=== PATIENT | female | born 1970 | race Caucasian/White ===

== ENCOUNTER 2019-11-05 11:28 | Outpatient (CLI) | payer SELFPAY ==
--- NOTE | 2019-11-05 11:35 | XRR_ITS ---
PROCEDURE INFORMATION: Exam: XR Abdomen, 1 View Exam date and time: 11/05/2019 11:49 AM Age: 49 years old Clinical indication: Abdominal pain; Prior surgery; Surgery type: Hystero; Additional info: Pain, HX of kidney stones TECHNIQUE: Imaging protocol: XR of the abdomen. Views: Frontal supine view of the abdomen. 1 View. COMPARISON: CR XR KUB [id number] 04/07/2014 3:26 PM FINDINGS: Gastrointestinal tract: Normal. No bowel dilation. Bones/joints: No acute findings. XR/XR KUB [id number] IMPRESSION: No acute findings.
== END 2019-11-05 11:29 | disposition home or self-care (01) ==
LOC: RAD 11:31
PROVIDERS: Visit Provider Urology
DX: R10.9 Unspecified abdominal pain (principal); Z87.442 Personal history of urinary calculi
CPT/HCPCS: 74018; 81000

== ENCOUNTER 2022-05-02 10:46 | Emergency (ER) | payer MEDICAID, SELFPAY ==
[2022-05-02 11:15] VITALS: BP 127/79; PULSE 75; TEMP 36.9; O2SAT 92; BMI 26.6
--- NOTE | 2022-05-02 12:58 | XR_ITS ---
WS: [id number] Chest 2 views, 05/02/2022 Clinical Data: cough, SOB Comparison: Two-view chest, 03/07/2018. Findings: No nodules, masses or effusions are seen. The heart is normal. The pulmonary vascularity is not increased. No pneumothorax is seen. There is a small patchy opacity over the lateral aspect of l eft diaphragm which could represent atelectasis and/or pneumonia. XR/XR chest 2V* [id number] Impression: Minimal patchy left lower lobe opacity which could represent atelectasis and/or pneumonia.
--- NOTE | 2022-05-02 13:00 | W.ED.URI ---
HPI - URI/Sore Throat General: Chief Complaint: Upper Respiratory Infection Stated Complaint: Lungs hurting, Lower back Time Seen by Provider: 05/02/22 12:00 History of Present Illness: Patient reports that she has had a cough for over a week now. She reports that her sputum has changed from clear to green. She reports that she is having some left mid back pain. She does offer that she has a history of kidney stones. She is not having any blood in her urine, painful urination, burning, urgency. She denies fever. She has been having some shortness of breath with a continuous cough. She does have a prescription for albuterol/ProAir at home that she has been using to help. She is concerned about pneumonia because she has had this several times in the past. Associated symptoms: Reports nasal congestion; Deny abdominal pain, chills, chest pain, fever(s), nausea or vomiting Review of Systems Const: Denies: fever(s) or chills ENMT: Reports: nasal congestion and post nasal drip Card: Denies: chest pain or palpitations Resp: Reports: dyspnea, productive cough, wheezing and change in phlegm color GI: Denies: abdominal pain, nausea or vomiting : Reports: flank pain; Denies: difficulty voiding, dysuria, urinary frequency, urinary urgency, urinary hesitancy or hematuria PFSH ED PFSH: Social History Smoking and tobacco status: current every day smoker Alcohol intake: never Physical Exam Const: COMMON NORMALS: no acute distress, patient oriented x3 and alert HENMT: COMMON NORMALS: TM's normal bilaterally TYMPANIC MEMBRANE: TM's normal bilaterally THROAT: posterior oropharynx normal, uvula midline and postnasal drainage Neck/C-Spine: COMMON NORMALS: no JVD Resp: EFFORT & INSPECTION: Yes able to speak in complete sentences AUSCULTATION: crackles Laterality: left and posterior Cardio: COMMON NORMALS: no JVD, regular rate, regular rhythm, S1 normal heart sound present and S2 normal heart sound present RATE: regular rate RHYTHM: regular rhythm HEART SOUNDS: S1 normal heart sound present and S2 normal heart sound present : COMMON NORMALS: Yes no CVA tenderness BLADDER/KIDNEY EXAM: Yes no CVA tenderness Back/Pelvis: COMMON NORMALS: no CVA tenderness Neuro: COMMON NORMALS: patient oriented x3 SENSORIUM/ORIENTATION: Yes alert Course Vital Signs: Vital signs: Vital Signs Temperature 98.5 F 05/02/22 11:15 Pulse Rate 75 05/02/22 11:15 Blood Pressure 127/79 05/02/22 11:15 Pulse Oximetry 92 05/02/22 11:15 Oxygen Delivery Me thod 05/02/22 11:15 MDM - URI/Sore Throat Medical Decision Making Consider UTI, renal stone, pneumonia, upper respiratory infection, muscle spasm UA dip?negative X-ray chest?2 view wet read shows left lower lobe opacity/pneumonia. Radiology review?minimal patchy left lower lobe opacity which could represent atelectasis and/or pneumonia. We will treat patient to cover community-acquired pneumonia. She has taken doxycycline in the past. Provide her with doxycycline and prednisone. Continue using ProAir at home as previously prescribed. Follow-up with primary care provider as needed. Return to the ER for new or worsening symptoms Lab Data Radiology Impressions Chest X-Ray 05/02/22 12:58 Impression: Minimal patchy left lower lobe opacity which could represent atelectasis and/or pneumonia. Laboratory Results Urine Color Yellow (Yellow) 05/02/22 13:14 Urine Appearance Clear (CLEAR) 05/02/22 13:14 Urine pH 6.5 (5-7) 05/02/22 13:14 Ur Specific [place] 1.015 (1.005-1.030) 05/02/22 13:14 Urine Protein Neg (Negative) 05/02/22 13:14 Urine Glucose (UA) Norm (Normal) 05/02/22 13:14 Urine Ketones Negative (Negative) 05/02/22 13:14 Urine Blood Neg (Negative) 05/02/22 13:14 Urine Nitrate Negative (Negative) 05/02/22 13:14 Urine Bilirubin Neg (Negative) 05/02/22 13:14 Urine Urobilinogen Norm mg/dL (Negative) 05/02/22 13:14 Ur Leukocyte Esterase Negative (Negative) 05/02/22 13:14 Discharge Plan Discharge Patient Disposition: Home Clinical Impression: Pneumonia of left lower lobe due to infectious organism Condition: Stable Prescriptions: New doxycycline hyclate 100 mg capsule 100 mg PO Q12H 7 Days Qty: 14 0RF prednisone 20 mg tablet 40 mg PO DAILY 5 Days Qty: 10 0RF No Action PRO-AIR inhalation doxycycline hyclate 100 mg capsule 100 mg PO BID 7 Days Qty: 14 0RF albuterol sulfate [ProAir HFA] 90 mcg/actuation HFA aerosol inhaler 2 puff inhalation Q6H PRN (Reason: shortness of breath or wheezing) Qty: 8.5 0RF Discharge Orders: Discharge ED (Routine); Ordered 05/02/22 Ordered By: Crystal Klein Discharge Diet: Usual diet Discharge Activity: Resume usual activity Patient Instructions: Pneumonia (ED) Activity Restrictions/Additional Instructions: Take antibiotics as directed. Take steroids as directed. Use your ProAir inhaler and albuterol nebulizer you have at home as needed/previously directed. Make sure that you are staying well-hydrated. Make sure that you are coughing and deep breathing numerous times per hour. Follow-up with your primary care provider as needed. Return to the ER for new or worsening symptoms. 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
[2022-05-02 13:28] LABS: Add Urine Microscopic? NO; Charge for UA Resulting for Rev
[2022-05-02 13:30] LABS: Specific Gravity, Urine 1.015 (1.005-1.030); Urine Appearance Clear (CLEAR); Urine Color Yellow (Yellow); pH Urine 6.5 (5-7)
[2022-05-02 13:31] LABS: Bilirubin Urine Neg (Negative); Blood Urine Neg (Negative); Glucose Urine UA Norm (Normal); Ketones Urine Negative (Negative); Leukocyte Esterase Urine Negative (Negative); Nitrate Urine Negative (Negative); Protein Urine Neg (Negative); Urobilinogen Urine Norm (Negative)
== END 2022-05-02 14:00 | disposition home or self-care (01) ==
PROVIDERS: Emergency Provider Nurse Practitioner Family
DX: J18.8 Other pneumonia, unspecified organism (principal); F17.210 Nicotine dependence, cigarettes, uncomplicated
CPT/HCPCS: 71046; 81003; 99283

== ENCOUNTER 2022-07-17 15:15 | Outpatient (CLI) | payer BC, MEDICAID, SELFPAY ==
--- NOTE | 2022-07-17 16:03 | XR_ITS ---
WS: [email or web address] XR lumbar spine 6V w f/e [id number] REASON FOR EXAM: NECK AND BACK PAIN FINDINGS: Relatively normal lumbar spine curvature is. Intervertebral disc spaces are intact and relatively well-preserved. No spondylolysis. There is 2.5 mm of neutral anterolisthesis of L4 on L5. This listhesis increases to 4 to 5 mm with fl exion and reduces somewhat with extension. Mild degenerative change in the facet joints L4-S1. XR/XR lumbar spine 6V w f/e [id number] IMPRESSION: Degenerative spondylosis as above.
== END 2022-07-17 15:16 | disposition home or self-care (01) ==
PROVIDERS: PCP Family Medicine; Visit Provider Family Medicine
DX: M54.2 Cervicalgia (principal); M47.816 Spondylosis without myelopathy or radiculopathy, lumbar region
CPT/HCPCS: 72114

== ENCOUNTER 2022-08-07 11:38 | Outpatient (CLI) | payer BC, MEDICAID, SELFPAY ==
--- NOTE | 2022-08-07 11:47 | MM_ITS ---
WS: [email or web address] BILATERAL SCREENING DIGITAL TOMOSYNTHESIS MAMMOGRAM WITH CAD HISTORY: SCREENING COMPARISON: 06/20/2012 Bilateral CC and MLO views with tomosynthesis and synthetic mammography submitted. Computer aided det ection analyzed. Breast composition: There are scattered areas of fibroglandular density. No suspicious masses, microc alcifications or architectural distortion. MM/[place] [id number] IMPRESSION: BI-RADS: 1-Negative FOLLOW UP: 1 Year Follow-up
== END 2022-08-07 11:39 | disposition home or self-care (01) ==
LOC: RAD 11:40
PROVIDERS: PCP Family Medicine; Visit Provider Family Medicine
DX: Z12.31 Encounter for screening mammogram for malignant neoplasm of breast (principal)
CPT/HCPCS: 77063; 77067

== ENCOUNTER 2022-09-20 11:33 | Outpatient (CLI) | payer BC, MEDICAID, SELFPAY | END 2022-09-20 11:34 | disposition home or self-care (01) | LOC: LAB 11:34 | PROVIDERS: PCP Family Medicine; Visit Provider Specialist | DX: C44.319 Basal cell carcinoma of skin of other parts of face (principal) | CPT/HCPCS: 88304; 88331 ==

== ENCOUNTER 2022-10-16 10:16 | Outpatient (CLI) | payer BC, MEDICAID, SELFPAY ==
--- NOTE | 2022-10-16 11:00 | MR_ITS ---
WS: [id number] MRI LUMBAR SPINE NONCONTRAST TECHNIQUE: Sagittal T1, T2 and STIR imaging. Axial T1 and T2 imaging. CLINICAL INFORMATION: lower back pain COMPARISON: None. FINDINGS: Mild lumbar curve. No acute compression. Slight anterolisthesis L3 on L4 and L4 on L5. Shallow centra l protrusion cervical spine at C5-C6. Small central protrusions in the mid thoracic spine at T7-T8 an d T8-T9. L1-L2: Normal. L2-L3: Mild annular bulging. Mild facet arthropathy. Spinal canal and foramen are patent. L3-L4: Mild annular bulging. Slight effacement of ventral thecal sac. Tiny annular fissure. Mild face t arthropathy. L4-L5: Slight retrolisthesis. Mild disc bulging with slight impingement traversing L5 nerve roots myesha aterally. Eccentric disc bulging with mild bilateral foraminal narrowing. Tiny annular fissure. Mild facet arthropathy. L5-S1: No significant disc bulging. Mild facet arthropathy. Spinal canal and foramen are patent. Small RIGHT renal cyst. Visualized pelvic bony structures: Normal. Paravertebral soft tissues: Normal. MR/MR lumbar spine wo con* [id number] IMPRESSION: 1. Mild lumbar curve. No acute compression. No high-grade central canal stenos is. 2. Annular bulging L4-L5 with slight contact of the traversing L5 nerve roots bilaterally. Eccentric disc bulging at this level with mild LEFT greater than R IGHT foraminal narrowing and a small annular fissure. 3. Mild annular bulging L3-L4 with a tiny annular fissure. Slight effacement o f the ventral thecal sac. 4. Mild facet arthropathy L4-L5. 5. Shallow central protrusion cervical spine at C5-C6. 6. Small central protrusions in the mid thoracic spine at T7-T8 and T8-T9.
== END 2022-10-16 10:17 | disposition home or self-care (01) ==
LOC: RAD 10:18
PROVIDERS: PCP Family Medicine; Visit Provider Physician Assistant
DX: M43.16 Spondylolisthesis, lumbar region (principal); M47.26 Other spondylosis with radiculopathy, lumbar region
CPT/HCPCS: 72148

== ENCOUNTER 2022-10-23 07:30 | Outpatient (CLI) | payer BC, MEDICAID, SELFPAY ==
--- NOTE | 2022-10-23 07:42 | US_ITS ---
WS: [email or web address] ABDOMINAL ULTRASOUND LIMITED REASON FOR EXAM: RUQ PAIN COMPARISON: None available. ORDER DATE: 10/23/2022 7:51 AM TECHNIQUE: Grayscale and Doppler ultrasound examination of the abdomen. FINDINGS: Pancreas: Unremarkable Abdominal aorta and IVC: Aorta measures 20 mm in diameter. IVC measures approximately 24 mm Liver: Liver measures 16.1 cm in length. Normal echotexture Gallbladder: Gallbladder wall thickness measures 2.5 mm mm. No evidence of cholelithiasis. Common jackie t measures 4 mm. Right kidney: Right kidney measures 9.9 cm x 4.3 cm x 4.9 cm. Right kidney cortex measures 1.3 cm. Th ere is a cyst measuring 17 mm in diameter in the mid kidney Portal vein hepatopedal flow on duplex imaging US/US abdomen limited [id number] IMPRESSION: No acute abnormality.
== END 2022-10-23 07:31 | disposition home or self-care (01) ==
PROVIDERS: PCP Family Medicine; Visit Provider Family Medicine
DX: R10.11 Right upper quadrant pain (principal)
CPT/HCPCS: 76705

== ENCOUNTER 2022-11-06 07:48 | Outpatient (CLI) | payer BC, MEDICAID, SELFPAY ==
--- NOTE | 2022-11-06 08:00 | NM_ITS ---
WS: [email or web address] NUCLEAR MEDICINE HIDA SCAN CLINICAL INFORMATION: RUQ PAIN TECHNIQUE: Following intravenous administration of 7.8 mCi of technetium 99m mebrofenin, images of th e abdomen were obtained over the course of 60 minutes. Next, gallbladder ejection fraction was determ ined by obtaining preprandial and one-hour postprandial images of the gallbladder following oral sourav stion of Ensure. COMPARISON: Ultrasound October 23, 2022 FINDINGS: Normal hepatic uptake at 5 minutes. Hepatomegaly. Normal hepatic excretion. Gallbladder is visualized by 10 minutes. No evidence of acute cholecystitis. Normal common bile duct and small bowel activity. Gallbladder ejection fraction 93% within normal limits. No evidence of chronic cholecystitis. NM/NM hepatobiliary w phar* [id number] IMPRESSION: 1. No evidence of acute or chronic cholecystitis. 2. Gallbladder ejection fraction 93% within normal limits.
== END 2022-11-06 07:49 | disposition home or self-care (01) ==
LOC: RAD 07:48
PROVIDERS: PCP Family Medicine; Visit Provider Family Medicine
DX: R10.11 Right upper quadrant pain (principal)
CPT/HCPCS: 78227; A9537

== ENCOUNTER → 2022-12-12 11:18 | Outpatient (BNVA) | payer BC, MEDICAID, SELFPAY | PROVIDERS: PCP Family Medicine; Visit Provider Internal Medicine Rheumatology | DX: Z79.899 Other long term (current) drug therapy (principal); M19.90 Unspecified osteoarthritis, unspecified site; Z11.1 Encounter for screening for respiratory tuberculosis; Z11.59 Encounter for screening for other viral diseases; M25.50 Pain in unspecified joint; R76.8 Other specified abnormal immunological findings in serum; Z71.85 Encounter for immunization safety counseling; M47.816 Spondylosis without myelopathy or radiculopathy, lumbar region; M43.16 Spondylolisthesis, lumbar region | CPT/HCPCS: 36415; 80076; 82306; 82565; 85025; 85651; 86140; 86200; 86235; 86431; 86480; 86704; 86803; 87340 ==

== ENCOUNTER 2023-02-07 09:51 | Outpatient (CLI) | payer BC, MEDICAID, SELFPAY ==
--- NOTE | 2023-02-07 09:57 | XR_ITS ---
WS: [email or web address] EXAMINATION: XR cervical spine 3V* [id number] Cervical spine 3 views REASON FOR EXAM: M54.16 - Radiculopathy, lumbar region COMPARISON: None available. FINDINGS: There is no sign of acute fracture or subluxation. Vertebral body heights and intervertebral disc sp aces are maintained. The cervical bony alignment and osseous densities appear normal except for 2 mm anterolisthesis of C4 compared to C5. There is no prevertebral soft tissue change. IMPRESSION: No acute osseous abnormality.
[2023-02-07 10:45] LABS: Basophils # 0.1 10^3/uL (0.0-0.1); Basophils % 1.1 %; Eosinophils # 0.1 10^3/uL (0.0-0.8); Eosinophils % 2.6 %; Hematocrit 48.6 % (36-47); Lymphocytes # 1.8 10^3/uL (0.8-4.8); Lymphocytes % 39.5 %; Mean Corpuscular HGB Conc 33.5 g/dL (30-55); Mean Corpuscular Hemoglobin 31.3 pg (27-33); Mean Corpuscular Volume 93.5 fl (85-98); Mean Platelet Volume 11.1 fL (7.4-10.4); Monocytes # 0.4 10^3/uL (0.2-0.9); Monocytes % 9.7 %; Neutrophils # 2.12 10^3/uL (1.8-7.7); Neutrophils % 46.9 %; Nucleated Red Blood Cells % 0 %; Platelet Count 193 10^3/cmm (157-399); Red Cell Distribution Width 12.5 % (12.1-15.1); White Blood Count 4.53 10^3/uL (3.29-11.43)
[2023-02-07 11:09] LABS: Alanine Aminotransferase 13 U/L (0-33); Albumin Level 4.5 g/dL (3.5-5.2); Alkaline Phosphatase 71 U/L (35-105); Aspartate Amino Transferase 16 U/L (0-32); Globulin 2.6 g/dL (1.3-4.6); Glomerular Filtration Rate 88.2 mL/min (90-130); Total Bilirubin 0.3 mg/dL (0.15-1.2); Total Protein 7.1 g/dL (6.6-8.7)
== END 2023-02-07 09:52 | disposition home or self-care (01) ==
PROVIDERS: PCP Family Medicine; Visit Provider Internal Medicine Rheumatology
DX: M54.16 Radiculopathy, lumbar region (principal); M25.50 Pain in unspecified joint; M54.2 Cervicalgia; R76.8 Other specified abnormal immunological findings in serum; Z79.899 Other long term (current) drug therapy
CPT/HCPCS: 36415; 72040; 80076; 82565; 85025; 86140

== ENCOUNTER → 2023-06-07 14:17 | Outpatient (BNVA) | payer BC, MEDICAID, SELFPAY | PROVIDERS: PCP Family Medicine; Visit Provider Internal Medicine Rheumatology | DX: R76.8 Other specified abnormal immunological findings in serum (principal); J84.9 Interstitial pulmonary disease, unspecified; R06.02 Shortness of breath; Z79.899 Other long term (current) drug therapy; M19.90 Unspecified osteoarthritis, unspecified site; Z71.85 Encounter for immunization safety counseling | CPT/HCPCS: 36415; 80076; 82565; 85025; 86140 ==

== ENCOUNTER → 2023-06-15 11:52 | Outpatient (BNVA) | payer BC, MEDICAID, SELFPAY | PROVIDERS: PCP Family Medicine; Visit Provider Orthopaedic Surgery | DX: M54.16 Radiculopathy, lumbar region (principal); M43.16 Spondylolisthesis, lumbar region; M48.061 Spinal stenosis, lumbar region without neurogenic claudication | CPT/HCPCS: 72110 ==

== ENCOUNTER 2023-06-28 11:07 | Outpatient (CLI) | payer BC, MEDICAID, SELFPAY ==
[2023-06-28 11:32] VITALS: PULSE 70; RESP 18; O2SAT 95
[2023-06-28] MEDS: albuterol 2.5 mg/3 mL Neb INHALATION (11:32)
[2023-06-28 11:37] VITALS: PULSE 75
== END 2023-06-28 11:08 | disposition home or self-care (01) ==
LOC: RT 11:09
PROVIDERS: PCP Family Medicine; Visit Provider Internal Medicine Rheumatology
DX: R06.02 Shortness of breath (principal); J84.9 Interstitial pulmonary disease, unspecified; R76.8 Other specified abnormal immunological findings in serum
CPT/HCPCS: 94060; 94729; J7613

== ENCOUNTER 2023-07-16 09:20 | Outpatient (CLI) | payer BC, MEDICAID, SELFPAY ==
--- NOTE | 2023-07-16 09:30 | CT_ITS ---
WS: [id number] CT CHEST CT-HIGH RESOLUTION, NONCONTRAST. HISTORY: Interstitial lung disease. Technique: High-resolution chest CT is performed in inspiration, expiration, supine and prone noelleo ninoska. All CT scans at [facility] use at least one of these dose optimization techniques: automated exposure control; mA and/or kV adjustment per patient size (includes targeted exams where dose is mat ched to clinical indication); or iterative reconstruction. DLP: 1015.55 mGy.cm COMPARISON: 06/01/2015 Findings: Lungs are well expanded. No new pulmonary mass or nodule or nodule that is enlarging in siz e. There are a few very tiny nodules seen on the prior study from 2016 which are reidentified. There is no honeycombing or traction bronchiectasis. No subpleural cysts. No rheumatoid nodules or pleural effusions. During expiration no air trapping. No persistent atelectasis. Mild atherosclerosis aorta. Densely calcified mediastinal and hilar lymph nodes. Normal size pulmonar y artery. No adenopathy. Normal size aorta. Normal adrenal glands. Impression: 1. No evidence for UIP. There is no bronchiectasis or honeycombing. 2. No pleural effusions or pulmonary nodules.
== END 2023-07-16 09:21 | disposition home or self-care (01) ==
LOC: RAD 09:21
PROVIDERS: PCP Family Medicine; Visit Provider Internal Medicine Rheumatology
DX: R06.02 Shortness of breath (principal); J84.9 Interstitial pulmonary disease, unspecified; R76.8 Other specified abnormal immunological findings in serum
CPT/HCPCS: 71250